=== PATIENT | male | born 1990 | race Hispanic/Latino ===

== ENCOUNTER 2022-04-22 15:00 | Emergency (ER) | payer OTHER, SELFPAY ==
[2022-04-22] MEDS ORDERED: Ketorolac Tromethamine 60 MG/2 ML VIAL ONE (16:00)
== END 2022-04-22 16:20 | disposition home or self-care (01) ==
LOC: NAV ERS 15:00
DX: G89.29 Other chronic pain (principal); M54.50 Low back pain, unspecified; F17.290 Nicotine dependence, other tobacco product, uncomplicated
CPT/HCPCS: 96372; 99283; J1885